=== PATIENT | female | born 1955 | race African-American/Black ===

== ENCOUNTER 2016-10-13 13:56 | Inpatient (IN) | payer OTHER ==
[~2016-10-13] VITALS: Ht 175.3 cm; Wt 123.0 kg
[2016-10-13 14:57] LABS: HEMATOCRIT 46.6 % (36.0-46.0); MCH 30.8 PG (29.0-34.0); MCHC 34.3 G/DL (30.0-36.0); MCV 89.6 FL (83-99); MEAN PLAT.VOLUME 12.3 uM^3 (9.5-12.4); PLATELET COUNT 153 K/uL (156-360); RBC DIS.WIDTH-CV 13.2 % (11.8-14.6); WHITE BLOOD COUNT 6.6 K/uL (4.1-10.2)
[2016-10-13 15:07] LABS: CHLORIDE 103 mEq/L (99-109); POTASSIUM 3.5 mEq/L (3.7-5.4); SODIUM 140 mEq/L (136-147)
[2016-10-13 15:09] LABS: GLUCOSE 343 mg/dL (70-99)
[2016-10-13 15:11] LABS: ANION GAP 13 MEQ/L (2-14)
[2016-10-13 15:13] LABS: GFR ESTIMATE (CALCULATED) > 59 mL/min/
[2016-10-13 15:14] LABS: UREA NITROGEN (BUN) 17 mg/dL (9-23)
[2016-10-13 15:22] LABS: TROP-I INTERPRETATION NEGATIVE; TROPONIN-I < 0.01 ng/mL (0.0-0.30)
[2016-10-13] MEDS ORDERED: LOPRESSOR100 M1 PO (16:42)
[2016-10-13] MEDS ORDERED: ERGOCALCIF50000 UNIT PO (16:42)
[2016-10-13] MEDS ORDERED: PLAVIX75 MG PO (16:43)
[2016-10-13] MEDS ORDERED: VENTOLIN HFA18 GM IH (16:43)
[2016-10-13] MEDS ORDERED: NORVASC10 MG PO (16:43)
[2016-10-13] MEDS ORDERED: MAXZIDE 37.5 M1 EACH PO (16:44)
[2016-10-13] MEDS ORDERED: LANTUS 10100 UNITS/ SC (16:44)
[2016-10-13] MEDS ORDERED: LO-DOSE ASPIRIN81 M1 PO (16:45)
[2016-10-13] MEDS ORDERED: GLUCOPHAGE1000 MG PO (16:45)
[2016-10-13] MEDS ORDERED: MOBIC15 MG PO (16:45)
[2016-10-13] MEDS ORDERED: B-COMPLEX-VITA1 EACH PO (16:46)
[2016-10-13] MEDS ORDERED: FOLIC ACID0.4 MG PO (16:47)
[2016-10-13] MEDS ORDERED: ALEVE220 MG PO (16:47)
[2016-10-13] MEDS ORDERED: BENADRYL25 MG PO (16:47)
[2016-10-13 19:08] LABS: TROP-I INTERPRETATION NEGATIVE; TROPONIN-I 0.02 ng/mL (0.0-0.30)
[2016-10-13 20:26] VITALS: BP 162/82
[2016-10-13 21:34] LABS: POINT-OF-CARE METER ID UU13113700
[2016-10-14 00:14] VITALS: BP 128/66
[2016-10-14 01:01] LABS: TROP-I INTERPRETATION NEGATIVE; TROPONIN-I 0.01 ng/mL (0.0-0.30)
[2016-10-14 04:12] VITALS: BP 139/93
[2016-10-14 07:12] LABS: HDL CHOLESTEROL 30 MG/DL (Desirable>=50); LDL CHOLESTEROL 110 mg/dL (Desirable<100); NON-HDL CHOLESTEROL 140 mg/dL (Desirable<160); TOTAL CHOLESTEROL 170 mg/dL (Desirable<200); TRIGLYCERIDES 149 MG/DL (Normal: <150)
[2016-10-14 08:06] VITALS: BP 136/78
[2016-10-14 08:06] LABS: Estimated Average Glucose 321 mg/dL (70-123); HEMOGLOBIN A1c (GLYCOHEMOGLOB) 12.8 % HGB (Below 5.7)
[2016-10-14 09:46] LABS: POINT-OF-CARE METER ID UU13113700
[2016-10-14 12:14] VITALS: BP 143/78
[2016-10-14 12:51] LABS: POINT-OF-CARE METER ID UU13113700
[2016-10-14 17:44] LABS: POINT-OF-CARE METER ID UU13113700
[2016-10-14 19:00] VITALS: BP 142/67
[2016-10-14 22:09] VITALS: BP 140/82
[2016-10-15 00:51] VITALS: BP 168/75
[2016-10-15 04:11] VITALS: BP 146/97
[2016-10-15 07:40] VITALS: BP 167/72
[2016-10-15 07:54] LABS: POINT-OF-CARE METER ID UU13113781
[2016-10-15] MEDS ORDERED: ATORVASTATIN CA40 MG PO (15:08)
[2016-10-15 15:25] VITALS: BP 127/69
== END 2016-10-15 16:40 | disposition home or self-care (01) | DRG 313 ==
LOC: EME 13:56 → 5WEST 16:49 → EDOF 16:49 → 5WEST 19:25 → 4EAST 10-14 10:38 → 5WEST 10-14 10:38 → 4EAST 10-14 21:51
PROVIDERS: Hospitalist; Internal Medicine
DX: R07.89 Other chest pain (principal); K21.9 Gastro-esophageal reflux disease without esophagitis; Z68.41 Body mass index [BMI] 40.0-44.9, adult; I10 Essential (primary) hypertension; J44.9 Chronic obstructive pulmonary disease, unspecified; E11.65 Type 2 diabetes mellitus with hyperglycemia; M12.9 Arthropathy, unspecified; D69.6 Thrombocytopenia, unspecified; I73.9 Peripheral vascular disease, unspecified; F17.210 Nicotine dependence, cigarettes, uncomplicated; E66.9 Obesity, unspecified; Z79.4 Long term (current) use of insulin; Z79.84 Long term (current) use of oral hypoglycemic drugs; Z79.02 Long term (current) use of antithrombotics/antiplatelets; Z98.62 Peripheral vascular angioplasty status; Z79.82 Long term (current) use of aspirin; Z82.49 Family history of ischemic heart disease and other diseases of the circulatory system
CPT/HCPCS: 71020; 78452; 80048; 80061; 82948; 83036; 84484; 85027; 93005; 93017; 94640; 99202; 99281; 99285; A9500; G0378; J1650; J1815; J2785

== ENCOUNTER 2017-03-05 08:15 | Emergency (ER) | payer SELFPAY ==
[~2017-03-05] VITALS: Ht 175.3 cm; Wt 124.1 kg
[~2017-03-05 08:15] MED LIST: ALEVE220 MG PO; ATORVASTATIN CA40 MG PO; B-COMPLEX-VITA1 EACH PO; BENADRYL25 MG PO; ERGOCALCIF50000 UNIT PO; FOLIC ACID0.4 MG PO; GLUCOPHAGE1000 MG PO; LANTUS 10100 UNITS/ SC; LO-DOSE ASPIRIN81 M1 PO; LOPRESSOR100 M1 PO; MAXZIDE 37.5 M1 EACH PO; MOBIC15 MG PO; NORVASC10 MG PO; PLAVIX75 MG PO; VENTOLIN HFA18 GM IH
[2017-03-05 09:04] LABS: ADD MIUA? YES; BILIRUBIN NEGATIVE; BLOOD NEGATIVE; COLOR YELLOW ((YELLOW)); GLUCOSE (STRIP) >=500; KETONES NEGATIVE; LEUKOCYTES MODERATE; NITRITE NEGATIVE; PROTEIN (STRIP) 30; SPECIFIC GRAVITY 1.021 (1.000-1.030); UROBILINOGEN 0.2 MG/DL (0.2-1.0)
[2017-03-05 09:31] LABS: BACTERIA 2+ /HPF; EPITHELIAL CELLS 2+ /HPF; HYALINE CASTS 20-30 /LPF; MUCUS TRACE /LPF; UCUL ADDED? YES
[2017-03-05] MEDS ORDERED: CITRATE OF MAG296 ML PO (11:47)
[2017-03-05 12:19] VITALS: BP 147/88
== END 2017-03-05 12:22 | disposition home or self-care (01) ==
LOC: EME 08:15
PROVIDERS: Emergency Medicine
DX: R10.10 Upper abdominal pain, unspecified (principal); R14.1 Gas pain; E11.9 Type 2 diabetes mellitus without complications; J44.9 Chronic obstructive pulmonary disease, unspecified; I10 Essential (primary) hypertension; K21.9 Gastro-esophageal reflux disease without esophagitis; F17.200 Nicotine dependence, unspecified, uncomplicated
CPT/HCPCS: 74020; 81003; 87086; 99281; 99284

== ENCOUNTER 2017-04-04 14:34 | Inpatient (IN) | payer OTHER ==
[~2017-04-04] VITALS: Ht 175.3 cm; Wt 120.7 kg
[~2017-04-04 14:34] MED LIST changes: +CITRATE OF MAG296 ML PO
[2017-04-04 16:46] LABS: HEMATOCRIT 49.3 % (36.0-46.0); MCH 30.4 PG (29.0-34.0); MCHC 34.7 G/DL (30.0-36.0); MCV 87.6 FL (83-99); MEAN PLAT.VOLUME 11.7 uM^3 (9.5-12.4); PLATELET COUNT 182 K/uL (156-360); RBC DIS.WIDTH-CV 12.4 % (11.8-14.6); RBC DIS.WIDTH-SD 39.8 % (39-53); RED BLOOD COUNT 5.63 M/uL (3.80-5.20); WHITE BLOOD COUNT 6.8 K/uL (4.1-10.2)
[2017-04-04 16:59] LABS: CHLORIDE 97 mEq/L (99-109); SODIUM 136 mEq/L (136-147)
[2017-04-04 17:01] LABS: GLUCOSE 259 mg/dL (70-99)
[2017-04-04 17:03] LABS: ANION GAP 18 MEQ/L (2-14)
[2017-04-04 17:05] LABS: GFR ESTIMATE (CALCULATED) 42 mL/min/
[2017-04-04 17:06] LABS: UREA NITROGEN (BUN) 29 mg/dL (9-23)
[2017-04-04 17:18] LABS: ERTH.SED.RATE 23 MM/HR (0-30)
[2017-04-04] MEDS ORDERED: CRESTOR5 MG PO (18:32)
[2017-04-04] MEDS ORDERED: PROTONIX40 MG PO (18:33)
[2017-04-04] MEDS ORDERED: MOBIC15 MG PO (18:34)
[2017-04-04] MEDS ORDERED: DUCODYL5 MG PO (18:36)
[2017-04-04] MEDS ORDERED: MICRO-K10 ME2 PO (18:37)
[2017-04-04] MEDS ORDERED: ERGOCALCIF50000 UNIT PO (18:38)
[2017-04-04] MEDS ORDERED: B-COMPLEX-VITA1 EACH PO (18:38)
[2017-04-04] MEDS ORDERED: ADVAIR 100/501 DISK IH (18:40)
[2017-04-04 21:44] LABS: HDL CHOLESTEROL 35 MG/DL (Desirable>=50); LDL CHOLESTEROL 110 mg/dL (Desirable<100); NON-HDL CHOLESTEROL 137 mg/dL (Desirable<160); TOTAL CHOLESTEROL 172 mg/dL (Desirable<200); TRIGLYCERIDES 133 MG/DL (Normal: <150)
[2017-04-04 22:03] VITALS: BP 143/91
[2017-04-04 22:39] LABS: POINT-OF-CARE METER ID UU13113831
[2017-04-04 23:06] LABS: Estimated Average Glucose 361 mg/dL (70-123)
[2017-04-04 23:08] LABS: HEMOGLOBIN A1c (GLYCOHEMOGLOB) 14.2 % HGB (Below 5.7)
[2017-04-04 23:28] VITALS: BP 148/85
[2017-04-05 05:36] LABS: MCH 30.1 PG (29.0-34.0); MCHC 34.3 G/DL (30.0-36.0); MCV 87.9 FL (83-99); MEAN PLAT.VOLUME 12.1 uM^3 (9.5-12.4); PLATELET COUNT 165 K/uL (156-360); RBC DIS.WIDTH-CV 12.5 % (11.8-14.6); RBC DIS.WIDTH-SD 40.4 % (39-53); RED BLOOD COUNT 5.35 M/uL (3.80-5.20); WHITE BLOOD COUNT 5.9 K/uL (4.1-10.2)
[2017-04-05 07:34] VITALS: BP 178/88
[2017-04-05 07:55] LABS: POINT-OF-CARE METER ID UU13113831
[2017-04-05 08:39] LABS: POINT-OF-CARE METER ID UU13113831
[2017-04-05 09:40] LABS: HEMATOCRIT 49.4 % (36.0-46.0); MCH 30.1 PG (29.0-34.0); MCHC 34.2 G/DL (30.0-36.0); MCV 87.9 FL (83-99); MEAN PLAT.VOLUME 11.9 uM^3 (9.5-12.4); PLATELET COUNT 161 K/uL (156-360); RBC DIS.WIDTH-CV 12.4 % (11.8-14.6); RBC DIS.WIDTH-SD 40.6 % (39-53); RED BLOOD COUNT 5.62 M/uL (3.80-5.20); WHITE BLOOD COUNT 6.2 K/uL (4.1-10.2)
[2017-04-05 09:56] LABS: ANION GAP 8 MEQ/L (2-14); CHLORIDE 103 MEQ/L (99-109); POTASSIUM 3.9 MEQ/L (3.7-5.4); SAMPLE HEMOLYSIS CHECK 2; SAMPLE ICTERIC CHECK 0; SAMPLE LIPEMIA CHECK 0; SODIUM 140 MEQ/L (136-147)
[2017-04-05 10:01] LABS: GLUCOSE 240 mg/dL (70-99); UREA NITROGEN (BUN) 22 mg/dL (9-23)
[2017-04-05 10:12] LABS: TROP-I INTERPRETATION NEGATIVE; TROPONIN-I 0.01 ng/mL (0.0-0.30)
[2017-04-05 10:13] LABS: GFR ESTIMATE (CALCULATED) > 59 mL/min/
[2017-04-05 11:41] LABS: POINT-OF-CARE METER ID UU13113831
[2017-04-05 11:42] VITALS: BP 150/83
[2017-04-05 16:35] VITALS: BP 138/70
[2017-04-05 17:14] LABS: POINT-OF-CARE METER ID UU13113831
[2017-04-05 20:16] VITALS: BP 170/77
[2017-04-05 21:50] LABS: POINT-OF-CARE METER ID UU14174225
[2017-04-05 23:54] VITALS: BP 144/74
[2017-04-06 04:04] VITALS: BP 136/87
[2017-04-06 07:56] VITALS: BP 150/84
[2017-04-06 09:35] LABS: POINT-OF-CARE METER ID UU14188625
[2017-04-06 11:38] VITALS: BP 144/78
[2017-04-06 12:13] LABS: POINT-OF-CARE METER ID UU13113717
[2017-04-06 16:12] VITALS: BP 158/85
[2017-04-06 16:51] LABS: POINT-OF-CARE METER ID UU14188625
[2017-04-06 19:47] VITALS: BP 154/71
[2017-04-06 21:20] LABS: POINT-OF-CARE METER ID UU14188625
[2017-04-06 23:52] VITALS: BP 153/82
[2017-04-07 03:30] VITALS: BP 144/80
[2017-04-07 07:55] VITALS: BP 139/79
[2017-04-07] MEDS ORDERED: LOPRESSOR50 MG PO (10:52)
[2017-04-07] MEDS ORDERED: ASPIRIN EC325 MG PO (10:53)
[2017-04-07] MEDS ORDERED: CRESTOR20 MG PO (11:21)
[2017-04-07 12:54] LABS: POINT-OF-CARE METER ID UU13113717
== END 2017-04-07 13:16 | disposition home or self-care (01) | DRG 65 ==
LOC: EME 14:34 → EDOF 19:59 → 5WEST 19:59 → ENRESERV 20:01 → 5WEST 21:44 → 5SOUTH 04-05 12:10 → ENRESERV 04-05 12:11 → 5SOUTH 04-05 19:19 → ENPENDDIS 04-07 → 5SOUTH 04-07 13:16
PROVIDERS: Hospitalist; Nurse Practitioner Family; Physician Assistant
DX: I63.12 Cerebral infarction due to embolism of basilar artery (principal); Z68.41 Body mass index [BMI] 40.0-44.9, adult; E11.42 Type 2 diabetes mellitus with diabetic polyneuropathy; E11.51 Type 2 diabetes mellitus with diabetic peripheral angiopathy without gangrene; E66.01 Morbid (severe) obesity due to excess calories; J44.9 Chronic obstructive pulmonary disease, unspecified; K21.9 Gastro-esophageal reflux disease without esophagitis; I10 Essential (primary) hypertension; I27.2 Other secondary pulmonary hypertension; E78.5 Hyperlipidemia, unspecified; F17.210 Nicotine dependence, cigarettes, uncomplicated; H47.012 Ischemic optic neuropathy, left eye; H54.42 Blindness, left eye, normal vision right eye; I36.0 Nonrheumatic tricuspid (valve) stenosis; I34.0 Nonrheumatic mitral (valve) insufficiency; N28.9 Disorder of kidney and ureter, unspecified; Z98.62 Peripheral vascular angioplasty status; M19.90 Unspecified osteoarthritis, unspecified site; Z91.14 Patient's other noncompliance with medication regimen; R00.1 Bradycardia, unspecified; R94.31 Abnormal electrocardiogram [ECG] [EKG]; Z79.4 Long term (current) use of insulin; Z79.84 Long term (current) use of oral hypoglycemic drugs; Z79.82 Long term (current) use of aspirin; Z82.49 Family history of ischemic heart disease and other diseases of the circulatory system
CPT/HCPCS: 70450; 70551; 80048; 80061; 82948; 83036; 84443; 84484; 85027; 85651; 86140; 93005; 93306; 93880; 94640 76; 99281; 99285; G0378; J1644; J1815; J7030

== ENCOUNTER 2017-04-13 09:55 | Emergency (ER) | payer OTHER ==
[~2017-04-13] VITALS: Ht 175.3 cm; Wt 121.8 kg
[~2017-04-13 09:55] MED LIST changes: +ADVAIR 100/501 DISK IH; +ASPIRIN EC325 MG PO; +CRESTOR20 MG PO; +CRESTOR5 MG PO; +DUCODYL5 MG PO; +LOPRESSOR50 MG PO; +MICRO-K10 ME2 PO; +PROTONIX40 MG PO
[2017-04-13] MEDS ORDERED: TRAMADOL HCL50 MG PO (12:25)
[2017-04-13] MEDS ORDERED: NAPROSYN500 MG PO (12:25)
[2017-04-13] MEDS ORDERED: FLEXERIL10 MG PO (12:35)
[2017-04-13 13:27] VITALS: BP 196/96
== END 2017-04-13 13:29 | disposition home or self-care (01) ==
LOC: EME 09:55 → EDBD 09:55 → EME 13:29
DX: M25.561 Pain in right knee (principal); M79.651 Pain in right thigh; M79.661 Pain in right lower leg; G89.29 Other chronic pain; I10 Essential (primary) hypertension; M17.11 Unilateral primary osteoarthritis, right knee; E11.9 Type 2 diabetes mellitus without complications; Z79.4 Long term (current) use of insulin; Z79.02 Long term (current) use of antithrombotics/antiplatelets; F17.210 Nicotine dependence, cigarettes, uncomplicated
CPT/HCPCS: 73564; 99281; 99284; J3010

== ENCOUNTER → 2017-05-18 | Outpatient (CLI) | payer OTHER ==
[~2017-05-18] MED LIST changes: +FLEXERIL10 MG PO; +NAPROSYN500 MG PO; +TRAMADOL HCL50 MG PO
== END | disposition home or self-care (01) ==
LOC: RAD 09:15
DX: N28.1 Cyst of kidney, acquired (principal); M25.78 Osteophyte, vertebrae; M48.02 Spinal stenosis, cervical region; M50.321 Other cervical disc degeneration at C4-C5 level; R79.89 Other specified abnormal findings of blood chemistry; M25.512 Pain in left shoulder; M79.602 Pain in left arm; E11.9 Type 2 diabetes mellitus without complications; Z79.4 Long term (current) use of insulin
CPT/HCPCS: 72050; 73030; 76770

== ENCOUNTER → 2017-07-07 | Outpatient (CLI) | payer OTHER | END | disposition home or self-care (01) | LOC: RAD 08:35 | DX: K21.9 Gastro-esophageal reflux disease without esophagitis (principal); I63.9 Cerebral infarction, unspecified; R07.89 Other chest pain; R19.4 Change in bowel habit | CPT/HCPCS: 74220 ==